=== PATIENT | male | born 1990 | race Two or more races ===

== ENCOUNTER 2018-04-21 18:31 | Emergency (ER) | payer SELFPAY ==
[~2018-04-21] VITALS: Ht 177.8 cm; Wt 77.1 kg
--- NOTE | 2018-04-21 18:44 | Emergency Room Report ---
History of Present Illness General Chief Complaint: Medical Clearance Source: Patient Present Illness HPI Patient currently in police custody. Patient presents here for medical clearance. Patient apparently was disruptive and resisting arrest. Required restraint. Patient has abrasions on his face as well as a chipped left front incisor. There is no evidence of active bleeding. I feel that this is consistent with a type I fracture of the tooth. Patient states that he spit the tooth out. He does not believe that he inhaled the tooth. No other injuries noted. Symptoms noted to be moderate moderate.No other modifying factors. No other associated signs and symptoms. No other complaints were noted. Allergies: Coded Allergies: No Known Allergies (Unverified , 04/21/18) Patient History Past Medical History: none Past Surgical History: none Pertinent Family History: none Social History: Denies: smoking, alcohol use, drug use Reviewed Nursing Documentation: PMH: Agreed; PSxH: Agreed Nursing Documentation-PM Past Medical History: No Stated History Review of Systems All Other Systems: negative except mentioned in HPI Physical Exam Vital Signs Date Time Temp Pulse Resp B/P (MAP) Pulse Ox O2 Delivery O2 Flow Rate FiO2 04/21/18 18:24 98.0 90 18 120/75 98 Room Air 98.1 Sp02 EP Interpretation: reviewed, normal General Appearance: no apparent distress, alert Head: normocephalic Eyes: bilateral eye normal inspection ENT: hearing grossly normal, normal voice, other - Left facial abrasion,, left upper incisor fracture type 1 Neck: normal inspection, full range of motion, supple, no bony tend Respiratory: normal inspection, lungs clear, normal breath sounds, no respiratory distress, no retraction, no wheezing Cardiovascular #1: regular rate, rhythm, no edema Gastrointestinal: normal inspection, normal bowel sounds, non tender, soft, no guarding, no hernia Genitourinary: no CVA tenderness Musculoskeletal: normal inspection, back normal, normal range of motion Neurologic: normal inspection, alert, responsive, speech normal Psychiatric: normal inspection, judgement/insight normal, anxious Skin: abrasions - Left side of the face Medical Decision Making Diagnostic Impression: Primary Impression: Facial abrasion Additional Impression: Fracture, tooth ER Course Patient presents emergency department today status post arrest. Require medical clearance. Patient has abrasion and fractured a tooth. Evaluation otherwise normal. No evidence of severe injury. Therefore patient's medically cleared advised to follow outpatient and dentistry.Patient is advised to follow up with primary doctor in 2-3 days and return the emergency room for any worsening symptoms and as needed. Chest X-Ray Diagnostic Results Chest X-Ray Diagnostic Results : Chest X-Ray Ordered: Yes # of Views/Limited/Complete: 1 View Indication: Chest Pain Interpretation: no consolidation, no effusion, no pneumothorax, no acute cardiopulmonary disease Impression: No acute disease Electronically Signed by: Electronically signed by Adonis Onofre MD Last Vital Signs Date Time Temp Pulse Resp B/P (MAP) Pulse Ox O2 Delivery O2 Flow Rate FiO2 04/21/18 18:24 98.0 90 18 120/75 98 Room Air 98.1 Status: improved Disposition: HOME, SELF-CARE Condition: Stable Adonis Onofre MD Apr 21, 2018 18:44
[2018-04-21 19:19] VITALS: BP 120/75
--- NOTE | 2018-04-22 12:12 | Diagnostic Imaging Report ---
Indication: Cough Technique: One view of the chest Comparison: none Findings: Lungs and pleural spaces are clear. Heart size is normal Impression: No acute process
[2018-04-22] MEDS ORDERED: NKM (15:21)
[2018-04-22] MEDS ORDERED: PERIDEX15 ML MM (15:31)
[2018-04-22] MEDS ORDERED: AMOXICILLIN500 MG ORAL (15:31)
[2018-04-22] MEDS ORDERED: CLOTRIMAZOLE15 GM TOPIC (15:31)
== END 2018-04-21 19:20 | disposition home or self-care (01) ==
LOC: EDBD 18:31 → EMR 18:43
DX: Z02.89 Encounter for other administrative examinations (principal); S02.5XXA Fracture of tooth (traumatic), initial encounter for closed fracture; S00.81XA Abrasion of other part of head, initial encounter; R07.9 Chest pain, unspecified; X58.XXXA Exposure to other specified factors, initial encounter; Y93.9 Activity, unspecified; Y92.9 Unspecified place or not applicable; Y99.9 Unspecified external cause status
CPT/HCPCS: 71045; 99283

== ENCOUNTER 2018-04-22 15:07 | Emergency (ER) | payer SELFPAY ==
[~2018-04-22] VITALS: Ht 175.3 cm; Wt 74.8 kg
[2018-04-22 15:14] VITALS: BP 123/71
[2018-04-22] MEDS ORDERED: NKM (15:21)
[2018-04-22] MEDS ORDERED: AMOXICILLIN500 MG ORAL (15:31)
[2018-04-22] MEDS ORDERED: CLOTRIMAZOLE15 GM TOPIC (15:31)
[2018-04-22] MEDS ORDERED: PERIDEX15 ML MM (15:31)
[2018-04-22] MEDS ORDERED: Bacitracin Oint 15gm Tube TOPIC SCH (15:45)
--- NOTE | 2018-04-22 15:46 | Emergency Room Report ---
History of Present Illness General Chief Complaint: Pain Source: Patient Present Illness HPI Patient presents emergency department today complaining of dental pain decreased hearing on the left side of the year and facial abrasion. Patient was seen here yesterday for okay to book and medical clearance. At that time was in police custody apparently was taken down to the floor and sustaining a dental fracture. Patient was medically cleared he is discharged in police custody presents here complaining of his dental pain. Patient also states that occasionally he gets a rash around the area of his neck or his hair he thinks it might be ringworm he's requesting topical antifungals. No other complaints are noted. Symptoms noted to be moderate.No other modifying factors. No other associated signs and symptoms. No other complaints were noted. Allergies: Coded Allergies: No Known Allergies (Unverified , 04/21/18) Patient History Past Medical History: none Past Surgical History: none Pertinent Family History: none Social History: Denies: smoking, alcohol use, drug use Reviewed Nursing Documentation: PMH: Agreed; PSxH: Agreed Nursing Documentation-PMH Past Medical History: No Stated History Review of Systems All Other Systems: negative except mentioned in HPI Physical Exam Vital Signs Date Time Temp Pulse Resp B/P (MAP) Pulse Ox O2 Delivery O2 Flow Rate FiO2 04/22/18 15:14 98.5 60 16 123/71 99 Room Air 98.4 Sp02 EP Interpretation: reviewed, normal General Appearance: normal inspection, well appearing, no apparent distress, alert Head: atraumatic Eyes: bilateral eye normal inspection ENT: hearing grossly normal, normal voice, TMs + canals normal - Occluded left ear canal from cerumen, other - Left upper inc dental fracture1 Neck: normal inspection, full range of motion, supple, no bony tend Respiratory: normal inspection, lungs clear, normal breath sounds, no respiratory distress, no retraction, no wheezing Cardiovascular #1: regular rate, rhythm, no edema Gastrointestinal: normal inspection, normal bowel sounds, non tender, soft, no guarding, no hernia Genitourinary: no CVA tenderness Musculoskeletal: normal inspection, back normal, normal range of motion Neurologic: normal inspection, alert, responsive, speech normal Psychiatric: normal inspection, judgement/insight normal, mood/affect normal Skin: abrasions - left face Medical Decision Making Diagnostic Impression: Primary Impression: Cerumen impaction Additional Impressions: Facial abrasion Fracture, tooth ER Course Patient presents emergency department today complaining of ankle pain and abrasions to face. Differential considerations include dental avulsion and alveolar ridge fracture. Facial fracture just name a few. Given patient's mentation felt the patient benefit from antibiotics as well as oral antibiotic mouth rinse. Patient has evidence of some impacted cerumen this will be irrigated with water. Patient is advised to follow-up with outpatient dental surgery or oral surgery. Patient states that he has occasional rashes will provide patient with discussion for Lotrimin.Patient is advised to follow up with primary doctor in 2-3 days and return the emergency room for any worsening symptoms and as needed. Last Vital Signs Date Time Temp Pulse Resp B/P (MAP) Pulse Ox O2 Delivery O2 Flow Rate FiO2 04/22/18 15:14 98.5 60 16 123/71 99 Room Air 98.4 Status: improved Disposition: HOME, SELF-CARE Condition: Stable Scripts Clotrimazole* (LOTRIMIN*) 15 Gm Cream..g. 1 APPLIC TOPIC TWICE A DAY for 14 Days, GM Prov: Adonis Onofre MD 04/22/18 Chlorhexidine Gluconate (Peridex) 15 Ml Mouthwash 15 ML MM BID for 10 Days, ML Prov: Adonis Onofre MD 04/22/18 Amoxicillin* (AMOXIL*) 500 Mg Capsule 500 MG ORAL THREE TIMES A DAY, #21 CAP Prov: Adonis Onofre MD 04/22/18 Patient Instructions: Cerumen Impaction, Tooth Injuries, [id number], Abrasion , [id number] Adonis Onofre MD Apr 22, 2018 15:46
[2018-04-22 16:01] VITALS: BP 123/71
== END 2018-04-22 16:01 | disposition home or self-care (01) ==
LOC: EMR 15:28
DX: S00.81XA Abrasion of other part of head, initial encounter (principal); S02.5XXA Fracture of tooth (traumatic), initial encounter for closed fracture; H61.20 Impacted cerumen, unspecified ear; Y35.891A Legal intervention involving other specified means, law enforcement official injured, initial encounter; Y93.9 Activity, unspecified; Y92.9 Unspecified place or not applicable
CPT/HCPCS: 99283